=== PATIENT | female | born 2000 | race Hispanic/Latino ===

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

== ENCOUNTER 2025-02-04 11:09 | Emergency (ER) | payer OTHER ==
[2025-02-04 11:54] LABS: #Basophils 0.1 thou/uL (0.0-0.2); #Eosinophils 0.0 thou/uL (0.0-0.7); #Lymphocytes 1.2 thou/uL (1.20-3.40); #Monocytes 0.4 thou/uL (0.11-0.59); #Neutrophils 6.4 thou/uL (1.40-6.50); %Basophils 0.9 % (0.0-1.0); %Eosinophils 0.4 % (0.0-10.0); %Lymphocytes 14.8 % (21.0-51.0); %Monocytes 4.5 % (0.0-10.0); %Neutrophils 79.4 % (42.0-75.0); Hematocrit 33.7 % (36.0-47.0); Hemoglobin 11.0 g/dL (12.0-16.0); Mean Corpuscular Hemoglobin 27.5 pg (27.0-31.0); Mean Corpuscular Volume 84.5 fl (78.0-98.0); Platelet Count 351 10x3/uL (130-400); Red Blood Cell (RBC) Count 3.99 mill/uL (4.20-5.40); White Blood Cell (WBC) Count 8.1 10x3/uL (4.8-10.8)
[2025-02-04 12:07] LABS: INR-International Normal Ratio 1.0; Prothrombin Time 12.8 sec (12.0-14.7)
[2025-02-04 12:08] LABS: PTT 28.3 sec (22.9-36.1)
[2025-02-04 12:13] LABS: ALT (SGPT) 22 U/L (Less than 34); AST (SGOT) 23 U/L (11-34); Albumin 3.1 g/dL (3.1-4.5); Alkaline Phosphatase 87 U/L (40-110); Anion Gap 16 mmol/L (10-20); BUN (Urea Nitrogen) 10 mg/dL (7.0-18.7); Bilirubin, Total 0.2 mg/dL (0.3-1.2); Calc. Creatinine Clearance 0 mL/min (70-130); Calcium 8.7 mg/dL (7.8-10.44); Carbon Dioxide 21 mmol/L (22-29); Chloride 110 mmol/L (98-107); Globulin 3.6 g/dL (2.4-3.5); Glucose 85 mg/dL (70-105); Potassium 3.7 mmol/L (3.5-5.1); Sodium 143 mmol/L (136-145)
== END 2025-02-04 12:30 | disposition home or self-care (01) ==
LOC: MADERS 11:09
DX: O12.05 Gestational edema, complicating the puerperium (principal); K06.8 Other specified disorders of gingiva and edentulous alveolar ridge
CPT/HCPCS: 80053; 83880; 85025; 85610; 85730; 93005; 99284

== ENCOUNTER 2025-02-04 22:31 | Emergency (ER) | payer OTHER ==
[2025-02-04] MEDS ORDERED: Ibuprofen 600 MG TAB ONE (22:58)
[2025-02-04] MEDS ORDERED: Acetaminophen 500 MG TAB ONE (22:59)
[2025-02-04 23:00] LABS: Bacteria/HPF 1+ HPF (None Seen); CAUTI Indications for Culture Pelvic or flank pain; Glucose, Urine (Dipstick) Negative (Negative); Leukocyte Small (Negative); Protein, Urine (Dipstick) Negative (Neg-Trace); Specific Gravity, Urine 1.025 (1.005-1.030)
[2025-02-04 23:02] LABS: Urine Culture Reflex Yes Yes
[2025-02-04 23:22] LABS: #Basophils 0.1 thou/uL (0.0-0.2); #Eosinophils 0.0 thou/uL (0.0-0.7); #Lymphocytes 1.1 thou/uL (1.20-3.40); #Monocytes 0.7 thou/uL (0.11-0.59); #Neutrophils 11.0 thou/uL (1.40-6.50); %Basophils 0.9 % (0.0-1.0); %Eosinophils 0.1 % (0.0-10.0); %Lymphocytes 8.1 % (21.0-51.0); %Monocytes 5.7 % (0.0-10.0); %Neutrophils 85.1 % (42.0-75.0); Hematocrit 35.8 % (36.0-47.0); Hemoglobin 11.7 g/dL (12.0-16.0); Mean Corpuscular Hemoglobin 27.9 pg (27.0-31.0); Mean Corpuscular Volume 85.2 fl (78.0-98.0); Platelet Count 329 10x3/uL (130-400); Red Blood Cell (RBC) Count 4.21 mill/uL (4.20-5.40); White Blood Cell (WBC) Count 12.9 10x3/uL (4.8-10.8)
[2025-02-04 23:39] LABS: ALT (SGPT) 23 U/L (Less than 34); AST (SGOT) 27 U/L (11-34); Albumin 3.3 g/dL (3.1-4.5); Alkaline Phosphatase 90 U/L (40-110); Anion Gap 18 mmol/L (10-20); BUN (Urea Nitrogen) 15 mg/dL (7.0-18.7); Bilirubin, Total 0.2 mg/dL (0.3-1.2); Calc. Creatinine Clearance 0 mL/min (70-130); Calcium 9.1 mg/dL (7.8-10.44); Carbon Dioxide 20 mmol/L (22-29); Chloride 109 mmol/L (98-107); Globulin 3.6 g/dL (2.4-3.5); Glucose 99 mg/dL (70-105); Potassium 3.5 mmol/L (3.5-5.1); Sodium 143 mmol/L (136-145)
[2025-02-05] MEDS ORDERED: Cephalexin 500 MG CAP ONE (00:25)
== END 2025-02-05 00:34 | disposition home or self-care (01) ==
LOC: MADERS 22:31
DX: N39.0 Urinary tract infection, site not specified (principal); R50.9 Fever, unspecified; O12.05 Gestational edema, complicating the puerperium; K06.8 Other specified disorders of gingiva and edentulous alveolar ridge
CPT/HCPCS: 80053; 81001; 83880; 85025; 85610; 85730; 87077; 87086; 87426; 93005; 99283; 99284; J7030